=== PATIENT | male | born 1975 | race Caucasian/White ===

== ENCOUNTER 2016-08-19 11:31 | Emergency (ER) | payer OTHER ==
[2016-08-19 13:36] VITALS: BP 151/102
--- NOTE | 2016-08-19 13:39 | UC ---
Shoulder Pain HPI - HPI Summary HPI Summary: complaint of right shoulder pain that started 3 weeks ago started after swinging a hammer for a prolonged amount of time woke up the next day with pain and stiffness inside his shoulder joint denies any other trauma constant aching pain, sometimes the pain radiates down his right arm moving his arm increases the pain resting doesn't reduce the pain took some tylenol and ibuprofen without relief - History of Current Complaint Chief Complaint: UCUpperExtremity Stated Complaint: RIGHT SHOULDER PAIN Time Seen by Provider: 08/19/16 13:25 Hx Obtained From: Patient - Allergies/Home Medications Allergies/Adverse Reactions: Allergies Allergy/AdvReac Type Severity Reaction Status Date / Time No Known Allergies Allergy Verified 08/19/16 11:56 Home Medications: Home Medications Acetaminophen TAB* [Tylenol TAB*] 1,000 mg PO Q6H PRN 08/19/16 [History Confirmed 08/19/16] Citalopram TAB* [Celexa TAB*] 20 mg PO DAILY 08/19/16 [History Confirmed ] Ibuprofen TAB* [Advil TAB*] 600 mg PO Q6H PRN 08/19/16 [History Confirmed ] Lisinopril/HCTZ 20/25(NF) [Zestoretic 20/25(NF)] 1 tab PO DAILY 08/19/16 [ History Confirmed 08/19/16] Metoprolol Succinate XL TAB* [Toprol XL TAB*] 100 mg PO DAILY 08/19/16 [History Confirmed 08/19/16] amLODIPine TAB* [Norvasc 5 mg TAB*] 10 mg PO DAILY 08/19/16 [History Confirmed 08/19/16] PMH/Surg Hx/FS Hx/Imm Hx Previously Healthy: Yes Endocrine History: Dyslipidemia Cardiovascular History: Hypertension - Surgical History Surgical History: Yes Surgery Procedure, Year, and Place: Fx and dislocated left hand w/metal plate. - Family History Known Family History: Positive: Cardiac Disease Negative: Hypertension, Diabetes - Social History Occupation: Employed Full-time Lives: With Family Alcohol Use: None Substance Use Type: None Smoking Status (MU): Never Smoked Tobacco Type: Smokeless Tobacco Amount Used/How Often: 1 can per week Length of Time of Smoking/Using Tobacco: 20 yrs Have You Smoked in the Last Year: Yes Review of Systems Constitutional: Negative Skin: Negative Eyes: Negative ENT: Negative Respiratory: Negative Cardiovascular: Negative Gastrointestinal: Negative Genitourinary: Negative Motor: Negative Neurovascular: Negative Musculoskeletal: Other: - right shoulder pain Neurological: Negative Psychological: Negative All Other Systems Reviewed And Are Negative: Yes Physical Exam Triage Information Reviewed: Yes Appearance: No Pain Distress, Well-Nourished, Obese Vital Signs: Initial Vital Signs Temp 97.9 F 08/19/16 11:57 Pulse 71 08/19/16 11:57 Resp 16 08/19/16 11:57 BP 144/100 08/19/16 11:57 Pulse Ox 98 08/19/16 11:57 Vital Signs Reviewed: Yes Eyes: Positive: Conjunctiva Clear ENT: Positive: Pharynx normal, TMs normal Neck: Positive: No Lymphadenopathy Respiratory: Positive: Lungs clear, Normal breath sounds, No respiratory distress Cardiovascular: Positive: RRR, No Murmur, Pulses Normal Abdomen Description: Positive: Nontender Bowel Sounds: Positive: Present Musculoskeletal: Positive: Other: - No bony deformities, non- tenderness in rotator cuff, tender in biceps tendon insertion site, non -tender over acromioclavicular joint. Full ROM and strength in shoulder upon adduction, abduction, internal and external rotation. Scapular winging, impingement sign, scratch test (internal rotation), joint laxity, drop arm test were negative. Neurological: Positive: Alert Psychological Exam: Normal Skin Exam: Normal Shoulder Course/Dx - Course Course Of Treatment: exam completed. shoulder pain started after reptitive use no other trauma. no s/s to warrant imaging at this time. will sent to PT, ivan roberts - Differential Dx/Diagnosis Differential Diagnosis/HQI/PQRI: Sprain, Strain, Tendonitis Provider Diagnoses: right shoulder pain - bicep tendonitis. elevated blood pressure Discharge - Discharge Plan Condition: Stable Disposition: HOME Prescriptions: Naproxen TAB* [Naprosyn 375 mg TAB*] 375 mg PO BID #20 tab Patient Education Materials: Tendinitis (ED) Referrals: Kole Sarmiento MD [Primary Care Provider] - Additional Instructions: Your blood pressure is elevated. Please contact your primary care provider within 1 -4 weeks for further evaluation. Please call physical therapy for further evaluation and treatment. Take naproxen to reduce pain. Increase fluids and rest. Please review your discharge instructions. If your symptoms do not improve please call your primary care provider or return to urgent care.
== END 2016-08-19 14:02 | disposition home or self-care (01) ==
LOC: UCCORT 11:31
DX: M25.511 Pain in right shoulder (principal); M75.21 Bicipital tendinitis, right shoulder; I10 Essential (primary) hypertension; E78.5 Hyperlipidemia, unspecified
CPT/HCPCS: 99212; G0463